=== PATIENT | male | born 1955 | race Caucasian/White ===

== ENCOUNTER 2018-01-20 14:42 | Emergency (ER) | payer MEDICAID ==
[~2018-01-20] VITALS: Ht 167.6 cm; Wt 70.0 kg
[~2018-01-20 14:42] MED LIST: UNKNOWN MEDS
[2018-01-20] MEDS ORDERED: SODIUM CHLORIDE 0.9% 1,000 ML IV ONE (16:00)
[2018-01-20 16:50] LABS: CHLORIDE 115 mEq/L (98-107)
[2018-01-20 16:51] LABS: BASOPHILS % 0.5 % (0.0-2.0); EOSINOPHILS % 1.1 % (0.0-5.0); HEMATOCRIT. 39.9 % (42.0-52.0); HEMOGLOBIN. 13.5 g/dL (14.0-18.0); LYMPHOCYTES % 45.9 % (20.0-50.0); MEAN CORPUSCULAR HEMOGLOBIN 31.6 pg (28.0-32.0); MEAN CORPUSCULAR VOLUME 93.7 fL (80.0-94.0); MEAN PLATELET VOLUME 8.9 fl (7.4-10.4); MONOCYTES % 6.7 % (2.0-8.0); NEUTROPHILS % 45.8 % (40.0-76.0); PLATELET 176 x1000/uL (130-400); RED BLOOD CELL COUNT 4.26 mill/uL (4.7-6.1); RED CELL DISTRIBUTION WIDTH 14.5 % (11.6-14.6)
[2018-01-20 16:52] LABS: PROTHROMBIN TIME 10.6 sec (9.4-11.6)
[2018-01-20 16:56] LABS: ETHANOL BLOOD 261 mg/dL
[2018-01-20 17:56] VITALS: BP 125/76
== END 2018-01-20 19:39 | disposition home or self-care (01) ==
LOC: ER 15:09
DX: G93.40 Encephalopathy, unspecified (principal); F10.129 Alcohol abuse with intoxication, unspecified; R79.1 Abnormal coagulation profile
CPT/HCPCS: 36415; 70450; 80053; 85025; 85610; 96360; 96361; 99285; G0482; J7030; Z7610